=== PATIENT | female | born 1975 | race Caucasian/White ===

== ENCOUNTER 2016-08-02 18:14 | Emergency (ER) | payer OTHER ==
[~2016-08-02] VITALS: Ht 165.1 cm; Wt 78.2 kg
[~2016-08-02 18:14] MED LIST: ONDA8TAB10 PO; OXYC-474 PO; OXYC10TA8 PO; OXYC5TAB72 PO; PROM25SU46 RC; PROM25TA14 PO
[2016-08-02 19:38] VITALS: BP 153/99; PULSE 86; RESP 16; O2SAT 100
[2016-08-02 20:39] LABS: APPEARANCE,URINE HAZY (CLEAR,HAZY); COLOR,URINE YELLOW (YELLOW); OCCULT BLOOD,URINE MODERATE (NEGATIVE); PH,URINE 5.5 (5.0-8.0); UROBILINOGEN,URINE NORMAL (NORMAL)
--- NOTE | 2016-08-02 20:40 | ED.REPORT ---
HPI-Abd Pain F Under 40 Date of Service Aug 02, 2016 ED Provider: Vishnu Recinos MD Pt is a 24 week 40 year old female with a history of frequent kidney stones who presents to the ED with complaints of right sided flank pain and dysuria. She reports that she was recently seen for kidney stones, and was discharged with a urine strainer and Hydrocodone. She reports collecting 2 stones. She states that she has been taking the Hydrocodone as prescribed with little alleviation of her symptoms. Pt admits to a significant amount of hematuria that she noticed this morning. She is having significant right sided flank pain as present. She denies any vomiting, but admits to constant nausea which she is controlling with IV Benadryl. She denies any fevers, abdominal pain , shortness of breath, chest pain or any other symptoms. Taking PO oxycodone 10mg at home for pain. States did not take any yesterday and today "can't get ahead of pain". Has appointment with urology in 4 days. Dec US showed punctate Ca++ in [place] SALTY and records show history of EtOH and opiate dependence in past. Lives in [place] but comes here for ED visits. Nursing Notes Stated Complaint: POSSIBLE KIDNEY STONES/ 22 WKS Chief Complaint: Back Pain or Injury Nursing Notes Reviewed: Yes Allergies: Coded Allergies: tetracycline (Verified Allergy, Severe, respiratory arrest, 08/02/16) iodine (Verified Allergy, Intermediate, hives, 08/02/16) NSAIDS (Non-Steroidal Anti-Inflamma (Verified Adverse Reaction, Intermediate, ulcers, 08/02/16) Scheduled PRN Ondansetron ODT (Ondansetron ODT) 8 Mg Tab.rapdis 8 MG PO Q4H PRN PRN For Nausea Oxycodone (Roxicodone) 5 Mg Tablet 5 MG PO Q4H PRN PRN For Pain Promethazine (Promethazine) 25 Mg Tablet 25 MG PO Q6H PRN PRN For Nausea Promethazine HCl (Phenergan) 25 Mg Supp.rect 25 MG RC Q6H PRN PRN For Nausea oxyCODONE (oxyCODONE) 5 Mg Tablet 5-10 MG PO Q6H PRN PRN For Pain oxyCODONE (oxyCODONE) 10 Mg Tablet 10-20 MG PO Q4H PRN PRN For Pain General Time Seen by MD: 20:16 Chief Complaint Flank pain right Hx Obtained From: Patient Arrived By: Walk-in Sudden in Onset?: Yes Onset Occurred: 9 - 12 hours ago Symptom Duration: Since onset Location: : Flank right Quality: Painful Severity: Current: Mild Severity: Maximum: Moderate Similar Sx Previous: Yes Past Medical History Past Medical History Notes: Pt lives in [place], urologist and OB in [place] Pt reports US from urologist last week (and OB - gets every Thursday) Past Medical History Medullary sponge kidney h/o Kidney Stones History of stomach ulcers Hx of one withdrawal seizures many years ago h/o ETOH abuse, sober for over 1 year History or narcotic medication abuse, sober for 4 years Hx of alcoholic Gastritis Past Surgical History Hiatal Hernia Repair (s/p Mary Ellen Fundoplication x2) Lithotripsy Reports: Appendectomy Family History Noncontributory Smoking History Former Smoker Social History Previous heavy ETOH use Alcohol Use: In recovery Drug Use: Denies drug use Other Social History: Good social support, , Lives with children, Local resident Ambulatory Status Independent Review of Systems Constitutional: Denies: Chills, Fever, Malaise, Weakness - generalized Respiratory: Denies: Non-productive cough, Shortness of breath, Wheezing Cardiovascular: Denies: Chest pain GI: Reports: Nausea, Denies: Abdominal pain, Constipation, Diarrhea, Vomiting Female: Reports: Flank pain, Hematuria, , Denies: Dysuria, Urinary frequency, Urinary urgency Musculoskeletal: Denies: Back pain, Extremity pain Complete sys rev & neg: except as marked. Physical Exam Initial Vital Signs Vital Signs (First) Date Time Temp Pulse Resp B/P Pulse Ox O2 Delivery O2 Flow Rate FiO2 08/02/16 19:38 36.6 86 16 153/99 100 Room Air Initial VS: Reviewed Head / Eyes: Atraumatic, Normocephalic, PERRL ENT: Mucous membranes moist, Conjunctiva normal, No scleral icterus Neck: Supple, Non-tender, Full range of motion Skin: Warm, Dry, No cyanosis Neurologic: Alert, Oriented, Nonfocal General/Constitutional: Awake, Alert, Well appearing, Well developed, Well nourished, Cooperative Respiratory / Chest: Atraumatic, Breath sounds NL, Breath sounds = bilat, No respiratory distress Cardiovascular: Heart rate NL, Regular rhythm, Heart sounds NL, No gallop, No murmurs, No rubs Abdomen: Atraumatic, Soft Back: Atraumatic, Inspection NL Interpretation & Diagnostics Lab Results Interpretation Test 08/02/16 20:05 Urine Color Yellow (YELLOW) Urine Appearance Hazy (CLEAR,HAZY) Urine pH 5.5 (5.0-8.0) Urine Specific Nerinx 1.022 (1.003-1.035) Urine Protein Negativemg/dL (NEG,TRACE) Urine Glucose (UA) Negativemg/dL (NEGATIVE) Urine Ketones Negativemg/dL (NEGATIVE) Urine Occult Blood Moderate (NEGATIVE) Urine Nitrite Negative (NEGATIVE) Urine Bilirubin Negative (NEGATIVE) Urine Urobilinogen Normalmg/dL (NORMAL) Urine Leukocyte Esterase Negative (NEGATIVE) Urine RBC 0-2/hpf (0-2) Urine WBC 0-5/hpf (0-5) Urine Epithelial Cells Many/hpf (NONE-MOD) Urine Crystals None seen (NONE SEEN) Urine Bacteria Few/hpf (NONE-FEW) Urine Hyaline Casts None/lpf (NONE) Urine Granular Casts None seen (NONE SEEN) Urine Waxy Casts None seen (NONE SEEN) Urine Red Blood Cell Casts None seen (NONE SEEN) Urine White Blood Cell Casts None seen (NONE SEEN) Urine Mucus None seen (None Seen) Urine Trichomonas None seen (NONE SEEN) Urine Yeast None (NONE SEEN) Urinalysis Comment None Urine Culture Reflexed Not indicated Re-Eval/Medical Decision Med Decision/Clinical Course Med Decision/Clinical Course: UA noted. Pt looks well. Elected not to pursue imaging here as she has close urology follow up. Source of Hx: Old records Re-Evaluation/Progress : Time of Eval: 21:53 Re-Evaluation/Progress Note: Pt is rechecked. She reports that her pain is alleviated but requested one additional dosage of dilaudid prior to discharge. I informed her that I am happy to provide her with her regular oxycodone medication. She understands and agrees, all questions are addressed. Counseled Regarding: Diagnosis, Lab results, Need for follow-up, When/why to return to ED Discharge & Departure Primary Impression: Right flank pain Disposition: Home Discharge Condition All VS Reviewed: Yes Condition: Stable Additional Instructions: Right flank pain that seemed to be associated with ureteral stones was treated in the emergency department with intravenous Dilaudid. Analysis does not suggest infection, we do not see blood in the urine at present. Keep the appointment with urology at the [facility] in 4 days. Continue with oxycodone and Benadryl at home as needed for pain. Referrals: NOPCP (PCP) Asael Attestation Portions of this note were transcribed by Tiffany Dawson. I, Dr. Recinos personally performed the history, physical exam and medical decision-making; I reviewed and confirmed the accuracy of the information in the transcribed note. Signed by: Asael Davenport, 08/02/2016 21:57 Vishnu Recinos MD Aug 02, 2016 20:40 GLORY DAWSON Aug 02, 2016 20:52
[2016-08-02] MEDS: HYDROmorphone 1 mg/mL Inj IVPUSH PRN ×2 (21:20→22:09)
== END 2016-08-02 22:15 | disposition home or self-care (01) ==
LOC: SED 18:14
DX: O99.89 Other specified diseases and conditions complicating pregnancy, childbirth and the puerperium (principal); R10.31 Right lower quadrant pain; R30.0 Dysuria; R31.9 Hematuria, unspecified; R11.0 Nausea; F10.21 Alcohol dependence, in remission; F11.21 Opioid dependence, in remission; Z3A.22 22 weeks gestation of pregnancy; Z87.442 Personal history of urinary calculi; Z87.891 Personal history of nicotine dependence; Z88.1 Allergy status to other antibiotic agents; Z91.041 Radiographic dye allergy status; Z88.6 Allergy status to analgesic agent
CPT/HCPCS: 81000; 96374; 96375; 96376; 99284; J1170; J1200